=== PATIENT | male | born 1995 | race Caucasian/White ===

== ENCOUNTER 2025-04-23 17:30 | Emergency (ER) | payer MEDICAID ==
[~2025-04-23] VITALS: Ht 182.9 cm; Wt 78.0 kg
[2025-04-23 17:41] VITALS: TEMP 36.9; O2SAT 100
[2025-04-23 18:14] LABS: CLARITY URINE TURBID (CLEAR); GLUCOSE URINE NEGATIVE (NEGATIVE); KETONES URINE NEGATIVE (NEGATIVE); LEUKOCYTE ESTERASE URINE NEGATIVE (NEGATIVE); NITRITE URINE NEGATIVE (NEGATIVE); OCCULT BLOOD URINE NEGATIVE (NEGATIVE); PH URINE 7.5 (4.5-8.0); PROTEIN URINE NEGATIVE (NEGATIVE); SPECIFIC GRAVITY URINE 1.019 (1.005-1.030); UROBILINOGEN URINE 1.0 E.U./dL (0.2-1.0)
[2025-04-23 18:36] LABS: BACTERIA URINE 3+; RBC URINE 0-2 /hpf (0-2); SQUAMOUS EPITHELIAL CELL URINE 1+ /lpf (RARE/1+)
[2025-04-23] MEDS ORDERED: IBUP-2028 MT (19:11)
[2025-04-23] MEDS ORDERED: LEVO-65 MT (19:11)
[2025-04-23 19:44] VITALS: BP 109/69; PULSE 84; RESP 16; O2SAT 100
[2025-04-26 06:08] LABS: CHLAMYDIA TRACHOMATIS NAA Negative (Negative); NEISSERIA GONORRHOEAE NAA Negative (Negative)
== END 2025-04-23 19:46 | disposition home or self-care (01) ==
LOC: ER 17:30
DX: N45.1 Epididymitis (principal)
CPT/HCPCS: 76870; 81003; 87491; 87591; 93976; 99284